=== PATIENT | female | born 1970 | race Caucasian/White ===

== ENCOUNTER 2021-02-27 12:38 | Observation (INO) | payer MEDICAID ==
[~2021-02-27] VITALS: Ht 172.7 cm; Wt 80.2 kg
[2021-02-27] MEDS ORDERED: SODIUM CHLORIDE 0.9% 1,000 ML IV ONE (13:00)
[2021-02-27] MEDS ORDERED: SODIUM CHLORIDE FLUSH 10ML SYR IVF ONE (13:00)
--- NOTE | 2021-02-27 13:25 | NUR ---
PT BIBA. PER EMS PT WAS DIZZY AND HAD X2 SYNCOPAL EPISODES TODAY. PT DENIES ANY BLOOD THINNERS OR TRAUMA DURING SYNCOPAL EPISODES. PER PT'S PT -LOC, HUSBANDS STATES AFTER SYNCOPAL EPISODES HE TOOK PT'S TEMPERATURE AND IT WAS 85 DEGREES ORALLY. CURRENTLY PT HAS A TEMPERATURE OF 94.1F RECTALLY. PT PROVIDED BLANKETS AND BEAR PAW. PT RECEIVED 1L NS FROM EMS EN ROUTE TO THIS FACILITY. 18G PIV PLACED IN R AC BY EMS. ORTHOSTATICS DONE ON PT AT THIS TIME, UPON STANDING PT'S BP 88/61, PT ASYMPTOMATIC AT TIME OF STANDING. EKG DONE UPON ARRIVAL. PT RESTING IN [place], MONITORING IN PLACE, NADN AT THIS TIME, PT STATES NO NEEDS, AT BEDSIDE, WCTM.
[2021-02-27 13:41] LABS: BASOPHILS % (AUTO) 1 % (0-1); EOSINOPHILS % (AUTO) 1 % (1-7); LYMPHOCYTES % (AUTO) 19 % (22-44); MD NO; MEAN CORPUSCULAR HEMOGLOBIN 32.3 pg (27.0-34.8); MEAN CORPUSCULAR HGB CONC 32.2 g/dL (32.4-35.8); MEAN PLATELET VOLUME 9.5 fL (7.4-10.4); MONOCYTES % (AUTO) 8 % (2-9); NEUTROPHILS % (AUTO) 71 % (42-75); PLATELET COUNT 228 x10^3/uL (130-400); RED BLOOD COUNT 4.59 x10^6/uL (3.82-5.3)
[2021-02-27 13:52] LABS: ALANINE AMINOTRANSFERASE 70 U/L (12-78); ALBUMIN 3.2 g/dL (3.4-5.0); ANION GAP 5 mmol/L (5-15); CALCIUM 7.7 mg/dL (8.5-10.1); CHLORIDE 110 mmol/L (98-107); CREATININE 0.73 mg/dL (0.55-1.02)
[2021-02-27 13:53] LABS: ALKALINE PHOSPHATASE 116 U/L (45-117); BILIRUBIN,TOTAL 0.7 mg/dL (0.2-1.0); TOTAL PROTEIN 7.2 g/dL (6.4-8.2)
--- NOTE | 2021-02-27 15:15 | NUR ---
PT ABLE TO AMBULATE STEADILY TO RESTROOM, URINE SAMPLE COLLECTED AND SENT TO LAB AT THIS TIME.
[2021-02-27 15:40] LABS: MICROSCOPIC INDICATED
[2021-02-27] MEDS ORDERED: LACTATED RINGERS 1,000 ML IVBOLUS ONE (16:30)
--- NOTE | 2021-02-27 16:40 | NUR ---
UNABLE TO COMPLETE THIRD SET OF ORTHOSTATICS D/T PT FEELING LIGHTHEADED AND DIZZY UPON STANDING.
[2021-02-27] MEDS ORDERED: ONDANSETRON 2MG/ML, 2ML IVPush PRN (17:00)
[2021-02-27] MEDS ORDERED: BUTALB/APAP/CAFFEINE 50MG/325MG/40MG PO PRN ×2 (17:00)
[2021-02-27] MEDS ORDERED: BACLOFEN 10 MG TABLET PO PRN (17:00)
[2021-02-27] MEDS ORDERED: GABAPENTIN 300 MG CAPSULE PO PRN (17:00)
[2021-02-27] MEDS ORDERED: ACETAMINOPHEN 325 MG TABLET PO PRN (17:00)
[2021-02-27] MEDS ORDERED: ENALAPRILAT 1.25 MG/ML, 2ML IVPush PRN (17:00)
[2021-02-27] MEDS ORDERED: GUAIFENESIN/DM 200-20MG, 10ML UDC PO PRN (17:00)
[2021-02-27] MEDS ORDERED: hydrALAzine 20 MG/ML, 1ML IVPush PRN (17:00)
[2021-02-27] MEDS ORDERED: SODIUM CHLORIDE 0.9% 1,000ML IV ONE (17:00)
[2021-02-27] MEDS ORDERED: ONDANSETRON ODT 4 MG PO PRN (17:00)
[2021-02-27 17:39] LABS: FREE T4 (FREE THYROXINE) 1.22 ng/dL (0.76-1.46)
[2021-02-27] MEDS: CEFTRIAXONE 1,000 MG in DEXTROSE 5% 50 ML IVPB SCH (18:14)
[2021-02-27 18:42] VITALS: BP 126/84
[2021-02-27] MEDS ORDERED: MELATONIN 5 MG TABLET PO SCH (21:00)
[2021-02-28 01:39] VITALS: BP 118/76
[2021-02-28] MEDS: CEFTRIAXONE 1,000 MG in DEXTROSE 5% 50 ML IVPB SCH (05:19)
[2021-02-28 05:50] LABS: ANION GAP 5 mmol/L (5-15); CALCIUM 7.3 mg/dL (8.5-10.1); CHLORIDE 113 mmol/L (98-107); CREATININE 0.51 mg/dL (0.55-1.02)
[2021-02-28 06:26] LABS: BASOPHILS % (AUTO) 2 % (0-1); EOSINOPHILS % (AUTO) 2 % (1-7); LYMPHOCYTES % (AUTO) 28 % (22-44); MEAN CORPUSCULAR HEMOGLOBIN 32.4 pg (27.0-34.8); MEAN CORPUSCULAR HGB CONC 32.7 g/dL (32.4-35.8); MONOCYTES % (AUTO) 15 % (2-9); NEUTROPHILS % (AUTO) 53 % (42-75); PLATELET COUNT 139 x10^3/uL (130-400); RED BLOOD COUNT 3.68 x10^6/uL (3.82-5.3); RED CELL DISTRIBUTION WIDTH 16.6 % (9.6-15.2)
[2021-02-28 06:35] LABS: MD NO
[2021-02-28 07:24] VITALS: BP 143/92
[2021-02-28] MEDS ORDERED: PROP20TA PO (08:36)
[2021-02-28] MEDS ORDERED: FURO-93 PO (08:36)
[2021-02-28] MEDS ORDERED: SPIR100T PO (08:36)
[2021-02-28] MEDS ORDERED: OMEP40CA42 PO (08:36)
[2021-02-28] MEDS ORDERED: SENNA/DOCUSATE TABLET PO SCH (09:00)
[2021-02-28] MEDS ORDERED: MAGNESIUM SULFATE PMX 2GM/50ML 50 ML IV ONE (09:00)
[2021-02-28] MEDS ORDERED: CEFD300C37 PO (11:08)
[2021-02-28 11:49] VITALS: BP 116/79
== END 2021-02-28 12:55 | disposition home or self-care (01) ==
LOC: ED 16:58 → EDIP 17:06 → 4WST 17:46
PROVIDERS: ADMIT Family Medicine; ATTEND Family Medicine
DX: I95.1 Orthostatic hypotension (principal); Z20.822 Contact with and (suspected) exposure to COVID-19; N39.0 Urinary tract infection, site not specified; R10.9 Unspecified abdominal pain; I10 Essential (primary) hypertension; K21.9 Gastro-esophageal reflux disease without esophagitis; T68.XXXA Hypothermia, initial encounter; D75.89 Other specified diseases of blood and blood-forming organs; E87.8 Other disorders of electrolyte and fluid balance, not elsewhere classified; R73.9 Hyperglycemia, unspecified; E83.51 Hypocalcemia; Z88.0 Allergy status to penicillin; Z98.84 Bariatric surgery status; Z79.899 Other long term (current) drug therapy
CPT/HCPCS: 36415; 71045; 80048; 80053; 81001; 82533; 83735; 84100; 84439; 84443; 84481; 85025; 87077; 87086; 87186; 93005; 96361; 96365; 96366; 96367; 99285; G0378; J0696; J3475; J7030; J7120; U0003